=== PATIENT | female | born 1960 | race Caucasian/White ===

== ENCOUNTER 2016-10-25 13:46 | Emergency (ER) | payer BC ==
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
[~2016-10-25 13:46] MED LIST: BACLOFEN10 MG PO; LOTRIMIN10 ML TP; VOLTAREN50 MG PO
== END 2016-10-25 17:02 | disposition home or self-care (01) ==
LOC: CED 13:46
DX: R51 Headache (principal); Z88.0 Allergy status to penicillin; E11.9 Type 2 diabetes mellitus without complications; I10 Essential (primary) hypertension; F41.9 Anxiety disorder, unspecified
CPT/HCPCS: 70450; 99284